=== PATIENT | male | born 1965 | race Caucasian/White ===

== ENCOUNTER → 2016-07-10 | Outpatient (CLI) | payer BC ==
[~2016-07-10] MED LIST: AMOX TR-K CLV 81 TA1 PO; ASPIRIN81 M2 PO; BYDUREON P2 MG/0.65 SQ; CEFTRIAXON1 G/PIGGYB IV; CHOLESTEROL MED; CIPRO PO; COLACE PO; DOC-Q-LACE100 MG PO; GLUCOTROL PO; HUMALOG MIX 75/10 ML SUBQ; HYDROCHLOROTH12.5 M1 PO; INVOKANA300 MG PO; JANUMET 50-1,1 UDTAB PO; JANUVIA PO; KEFLEX500 MG PO; LEVEMIR SUBQ; LEVEMIR100 UNITS/ SUBQ; LEVOFLOXACIN500 MG PO; LIPITOR40 MG PO; LIPITOR80 MG PO; LISINOPRIL5 MG PO; LORTAB 7.5-3251 EACH PO; METFORMIN HCL1000 M1 PO; METFORMIN PO; METRONIDAZOLE PO; MILK OF MAGNESIA PO; NAPRELAN; NORCO 7.5-3251 EACH PO; NOVOLOG100 U/ML SUBQ; PERCOCET5/325 PO; PIPERACIL-TA3.375 G2 IV; QSYMIA 15 MG-91 EACH PO; VANCOMYCIN1.75 GM/50 IV; VITAMIN D1000 UNI1 PO; VITAMIN D2 PO; VYTORIN 10/40 T1 TAB PO; ZYVOX600 MG PO
--- NOTE | ~2016-07-10 | US128 ---
[id number] [facility] [address] [facility]. [place], [place] [address] [id number] O MR#: [id number] Acc #: [id number] NAME: KENROY SCHULZ : 1965 SEX: M STUDY DATE/TIME: 07/10/2016 15:05 UNIT: [facility]US ROOM: STUDY DESCRIPTION: Thyroid Attending Physician: Beck Max M.D. Referring Physician: Beck Max M.D. Ordering Physician: Beck Max M.D. Primary Care Physician: Belen Leal M.D. MEDICAL IMAGING REPORT This report is preliminary unless electronic signature is present EXAM Thyroid ultrasound, 07/10/2016. HISTORY Enlarged thyroid on physical examination, 07/02/2016, nontoxic thyroid goiter. FINDINGS The right thyroid lobe measured 3.9 cm x 2.1 cm x 2 cm, while the left thyroid lobe measured 3.5 cm x 1.4 cm x 1.8 cm. The isthmus measured 9 mm in the AP direction. There is a 9 mm nodule located along the right side of the isthmus. Additionally, there is a 9 mm nodule in the lower pole of the left thyroid lobe. The thyroid is otherwise homogeneous in echotexture. There are no masses extrinsic to the thyroid. Normal blood flow is seen throughout both thyroid lobes. IMPRESSION Borderline enlarged thyroid isthmus containing a 9 mm solid nodule. There is also a 9 mm nodule in the lower pole of the left thyroid lobe. There is no prior exam for comparison. Dictated by... Dereje Gray M.D. THIS IS AN ELECTRONICALLY VERIFIED REPORT Dereje Gray M.D. at 07/12/2016 8:07 AM LEONARDO/sal TD: 07/11/2016 10:06 JOB #: [id number] MEDICAL IMAGING REPORT Page 1 of 1 COPY
== END | disposition home or self-care (01) ==
LOC: CGUS 14:43
DX: E04.1 Nontoxic single thyroid nodule (principal); E04.2 Nontoxic multinodular goiter
CPT/HCPCS: 76536

== ENCOUNTER 2016-08-31 15:13 | Emergency (ER) | payer BC ==
[~2016-08-31] VITALS: Ht 188 cm; Wt 149.7 kg
--- NOTE | ~2016-08-31 | CR126 ---
[facility] A Service of [facility] & [facility] RADIOLOGY TEXT RESULTS PATIENT: KENROY SCHULZ LOCATION: [facility] : [birth year] UNIT #: [id number] AGE: [address]: Sultana Whaley APRN SEX: M ORDER DR: [id number] [facility] [address] [facility]. [place], [place] [address] [id number] MR#: [id number] Acc #: [id number] NAME: KENROY SCHULZ. : 1965 SEX: M STUDY DATE/TIME: 08/31/2016 16:36 UNIT: [facility] ROOM: STUDY DESCRIPTION: CR Foot Complete Min 3 View Lt Attending Physician: Sultana Whaley A.P.R.N. Ordering Physician: Sultana Whaley A.P.R.N. Primary Care Physician: Belen Leal M.D. MEDICAL IMAGING REPORT This report is preliminary unless electronic signature is present EXAM Left foot, 3 views. HISTORY Foot pain after puncture wound today. Stepped on a nail. FINDINGS Three views of the left foot demonstrate moderate degenerative changes in the midfoot and small posterior plantar calcaneal spurs. Arterial calcifications. No fracture, joint space narrowing, dislocation or opaque soft tissue foreign body. IMPRESSION No acute finding. No opaque soft tissue foreign body. [id number] multifocal degenerative changes. Dictated by... Domingo Hill M.D. THIS IS AN ELECTRONICALLY VERIFIED REPORT Domingo Hill M.D. at 09/01/2016 6:06 PM MARIELA/linnea TD: 08/31/2016 23:00 JOB #: [id number] MEDICAL IMAGING REPORT Page 1 of 1 COPY
== END 2016-08-31 18:36 | disposition home or self-care (01) ==
LOC: CED 15:13 → CFTX 15:13
DX: S91.332A Puncture wound without foreign body, left foot, initial encounter (principal); E11.9 Type 2 diabetes mellitus without complications; Z79.82 Long term (current) use of aspirin; Z79.84 Long term (current) use of oral hypoglycemic drugs; Z79.899 Other long term (current) drug therapy; W10.9XXA Fall (on) (from) unspecified stairs and steps, initial encounter; Z23 Encounter for immunization
CPT/HCPCS: 29405; 73630; 90471; 90715; 96372; 99283; J0696